=== PATIENT | female | born 1995 | race Caucasian/White ===

== ENCOUNTER → 2017-09-21 | Outpatient (CLI) | payer OTHER | LOC: CFH 12:20 | PROVIDERS: ATTEND Emergency Medicine | DX: N83.201 Unspecified ovarian cyst, right side (principal); N85.8 Other specified noninflammatory disorders of uterus | CPT/HCPCS: 76856 ==

== ENCOUNTER 2018-08-04 07:39 | Emergency (ER) | payer SELFPAY ==
[~2018-08-04] VITALS: Ht 162.6 cm; Wt 73.0 kg
--- NOTE | 2018-08-04 07:57 | NUR ---
upon arrival to 19, pt ambulated to bathroom to give sample. midlevel at bedside performing exam upon return to room
[2018-08-04] MEDS ORDERED: ONDANSETRON 4 MG TABLET PO ONE (08:00)
[2018-08-04] MEDS ORDERED: DIPHENHYDRAMINE 25 MG CAPSULE PO ONE ×2 (08:00→09:30)
[2018-08-04] MEDS ORDERED: KETOROLAC 30 MG/1 ML IM ONE (08:00)
[2018-08-04] MEDS ORDERED: ONDANSETRON ODT 4 MG ONE (08:11)
[2018-08-04] MEDS ORDERED: DIPHENHYDRAMINE 25 MG CAPSULE ONE (08:12)
[2018-08-04] MEDS ORDERED: KETOROLAC 30 MG/1 ML ONE (08:12)
--- NOTE | 2018-08-04 08:23 | NUR ---
Pt in US.
[2018-08-04 08:24] LABS: MICROSCOPIC AUTO
[2018-08-04 08:29] LABS: CULTURE INDICATED? YES
--- NOTE | 2018-08-04 08:41 | NUR ---
RETURNED FROM [facility]. BLOOD DRAWN AND MEDICATED PER ORDERS
[2018-08-04 08:47] LABS: BASOPHILS # (AUTO) 0.02 x10^3/uL (0-0.1); BASOPHILS % (AUTO) 0 % (0-1); EOSINOPHILS # (AUTO) 0.03 x10^3/uL (0-0.4); EOSINOPHILS % (AUTO) 0 % (1-7); LYMPHOCYTES % (AUTO) 10 % (22-44); MD NO; MEAN CORPUSCULAR HEMOGLOBIN 30.6 pg (27.0-34.8); MEAN CORPUSCULAR HGB CONC 33.9 g/dL (32.4-35.8); MEAN CORPUSCULAR VOLUME 90.3 fL (80-100); MEAN PLATELET VOLUME 7.3 fL (7.4-10.4); MONOCYTES # (AUTO) 0.94 x10^3/uL (0.2-0.8); MONOCYTES % (AUTO) 7 % (2-9); NEUTROPHILS # (AUTO) 11.08 x10^3/uL (1.8-6.8); NEUTROPHILS % (AUTO) 83 % (42-75); PLATELET COUNT 343 x10^3/uL (130-400); RED BLOOD COUNT 4.89 x10^6/uL (3.82-5.3); RED CELL DISTRIBUTION WIDTH 12.9 % (9.6-15.2)
[2018-08-04 08:52] LABS: ALANINE AMINOTRANSFERASE 207 U/L (12-78); ALBUMIN 3.6 g/dL (3.4-5.0); ANION GAP 5 mmol/L (5-15); CALCIUM 8.6 mg/dL (8.5-10.1); CHLORIDE 108 mmol/L (98-107); CREATININE 0.82 mg/dL (0.55-1.02)
[2018-08-04 08:57] LABS: ALKALINE PHOSPHATASE 125 U/L (45-117); BILIRUBIN,TOTAL 0.9 mg/dL (0.2-1.0); TOTAL PROTEIN 7.7 g/dL (6.4-8.2)
[2018-08-04] MEDS ORDERED: SODIUM CHLORIDE FLUSH 10ML SYR IVF ONE (09:00)
--- NOTE | 2018-08-04 09:27 | NUR ---
NEEDS IV FOR CT SCAN
[2018-08-04] MEDS ORDERED: ONDANSETRON ODT 4 MG PO ONE (09:30)
[2018-08-04] MEDS ORDERED: CEFTRIAXONE PMX 1GM/50ML 50 ML IV ONE (09:30)
--- NOTE | 2018-08-04 09:46 | NUR ---
PT STATES OVERALL PAIN HAS IMPROVED SINCE MEDICATED. AFTER IV STARTED PT TO CT
[2018-08-04] MEDS ORDERED: OMNIPAQUE 350 MG/ML, 100ML BOTTLE ONE (09:50)
--- NOTE | 2018-08-04 09:59 | NUR ---
CT COMPLETED AND ANTIBIOTICS INFUSING
--- NOTE | 2018-08-04 10:17 | NUR ---
Pt resting in bed talking with friend at bedside,
[2018-08-04 11:19] VITALS: BP 124/82
== END 2018-08-04 11:22 | disposition home or self-care (01) ==
LOC: ED 08:47
DX: N10 Acute pyelonephritis (principal); G43.909 Migraine, unspecified, not intractable, without status migrainosus
CPT/HCPCS: 36415; 74177; 76830; 80053; 81001; 83605; 84145; 84703; 85025; 87040; 87077; 87086; 96365; 96372; 99284; J0696; J1885; Q0162; Q0163; Q9967; 87186

== ENCOUNTER 2020-01-06 13:38 | Emergency (ER) | payer SELFPAY ==
[~2020-01-06] VITALS: Ht 162.6 cm; Wt 60.0 kg
[2020-01-06 13:51] VITALS: BP 132/70
--- NOTE | 2020-01-06 13:53 | NUR ---
THIS IS A 24 YEAR OLD FEMALE WHO WAS BIB BY AMBULANCE ON A LEGAL HOLD FROM [facility] FOR MEDICAL CLEARANCE. PT UNCOOPERATIVE AND WILL NOT ANSWER SIMPLE QUESTIONS. ROOM SECURED, BELONGING IN LOCKER, SITTER AT DOOR
--- NOTE | 2020-01-06 14:23 | NUR ---
THIS RN IN WITH LAB TO ASSIST WITH BLOOD DRAW. EDUCATED PATIENT REGARDING THE NEED FOR BLOOD. PT WAS COOPERATIVE. THEN RIGHT BEFORE BLOOD DRAW, PT MOVED HER ARM AWAY NOT LETTING US GET ACCESS FOR BLOOD. ASKED PT AGAIN FOR ARM AND TO GET BLOOD. PT REFUSES. TOURNIQUET REMOVED
[2020-01-06] MEDS ORDERED: HALOPERIDOL 5 MG/ML IM ONE (15:00)
--- NOTE | 2020-01-06 15:00 | NUR ---
Call from [place] at [facility] who states that they have an accepting doctor after patient is medically cleared.
--- NOTE | 2020-01-06 15:00 | NUR ---
WALKED PT TO BATHROOM. PT REFUSING TO SIT DOWN AND URINATE. PT STATES "SHUT THE DOOR. ALL THE WAY. I JUST WANT PRIVACY." PT EDUCATED REGARDING HOSPITAL POLICY. PT IS ON LEGAL HOLD. PT CONTINUING TO PROPERTY TECHNICIAN THE CORNER OF BATHROOM. SECURITY CALLED FOR ASSISTANCE. DR. AGUILAR SPEAKING WITH PT WELL. PT BACK TO BATHROOM. DOOR IS CRACKED. PT REFUSING TO URINATE. GETS UP OFF TOILET. PER EDMD, PT BACK TO ROOM. PT AGGRESSIVE WITH STAFF. PT TO ROOM. ALL SAFETY MEASURES OBTAINED.
--- NOTE | 2020-01-06 15:27 | NUR ---
PT REFUSES BED MORRISON AT THIS TIME.
--- NOTE | 2020-01-06 15:30 | NUR ---
PT REFUSING LABS
--- NOTE | 2020-01-06 15:41 | NUR ---
PT REQUESTING TO GO TO THE BATHROOM. PT OFFERED BED MORRISON AGAIN. PT STATES "I CAN USE THE BATHROOM WITH THE DOOR CLOSED." PT REEDUCATED REGARDING TRYING THAT EARLIER. PT ASKED AGAIN IF SHE WANTS TO USE BED MORRISON TO URINATE. PT SAYS "ARE WE GOING TO DO THIS MY WAY?" PT REEDUCATED REGARDING LEGAL HOLD STATUS. PT ASKED A THIRD TIME REGARDING BEDPAN. PT REFUSES.
--- NOTE | 2020-01-06 16:18 | NUR ---
PT REQUESTING TO USE BATHROOM, BEING UNCOOPERATIVE, OFFERED BSC, REFUSED, PT THEN WRAPPED SELF IN PRIVACY CURTAIN, REMOVED CURTAIN FOR SAFETY.
[2020-01-06] MEDS ORDERED: HALOPERIDOL 5 MG/ML ONE (16:42)
--- NOTE | 2020-01-06 16:46 | NUR ---
PT REFUSING TO COOPERATE AND KEEP DOOR CLOSED. PT HAS BEEN REDIRECTED MULTIPLE TIMES. PT REFUSING TO SIT ON GURNEY OR MOVE IN ORDER FOR THE DOOR TO BE SHUT. PT REEDUCATED AGAIN REGARDING LEGAL HOLD. PT REFUSING TO COOPERATE.
--- NOTE | 2020-01-06 16:48 | NUR ---
PT PLACED IN RESTRAINTS. PT MEDICATED PER ORDER. NADN. ALL SAFETY MEASURES OBTAINED.
--- NOTE | 2020-01-06 17:22 | NUR ---
ED DIET TRAY DELIVERED. PT STILL REFUSING BED MORRISON AND WATER. CMS INTACT. ALL SAFETY MEASURES OBTAINED.
--- NOTE | 2020-01-06 17:57 | NUR ---
PT OUT OF RESTRAINT, USED BSC WITH OBSERVATION, BEING COOPERATIVE, MEAL PROVIDED.
--- NOTE | 2020-01-06 18:20 | NUR ---
PT ATE 50% MEAL, SITTER DOOR, ROOM REMAINS SECURED. WARM BLANKETS GIVEN
[2020-01-06 18:28] LABS: MICROSCOPIC INDICATED
--- NOTE | 2020-01-06 18:37 | NUR ---
PT ROAMING HALLS. PT REDIRECTED TO GO BACK TO ROOM. PT RESISTANT TO WALK INTO ROOM. PT RESISTANT TO SITTING ON GURNEY. PT REEDUCATED REGARDING THE PROCESS AND BEING ON LEGAL 1999. PT GOT BACK OFF GURNEY. PT REDIRECTED TO SIT DOWN. PT ALSO EDUCATED ABOUT POSSIBLY BEING BACK IN RESTRAINTS IF SHE CONTINUES TO ROAM THE HALLS. PT WAS GIVEN THE CHOICE TO SIT ON GURNEY OR WE CAN HAVE SECURITY COME. PT SAT ON GURNEY. JOCELIN
[2020-01-06 18:40] LABS: AMPHETAMINE SCREEN, URINE Negative (Negative); BARBITURATE SCREEN, URINE Negative (Negative); BENZODIAZEPINE SCREEN, URINE Negative (Negative); CANNABINOID SCREEN, URINE Positive (Negative); COCAINE SCREEN, URINE Negative (Negative); METHADONE SCREEN, URINE Negative (Negative); OPIATE SCREEN, URINE Negative (Negative)
--- NOTE | 2020-01-06 18:50 | NUR ---
Received report from Josh Lora RN.
--- NOTE | 2020-01-06 18:55 | NUR ---
REPORT TO KRISTY STARKS, PLAN OF CARE DISCUSSED.
--- NOTE | 2020-01-06 19:12 | NUR ---
Pt wakens easily and compliant w/ blood draw. Pt returned to sleeping.
[2020-01-06 19:21] LABS: BASOPHILS # (AUTO) 0.04 x10^3/uL (0-0.1); BASOPHILS % (AUTO) 0 % (0-1); EOSINOPHILS # (AUTO) 0.07 x10^3/uL (0-0.4); EOSINOPHILS % (AUTO) 1 % (1-7); LYMPHOCYTES # (AUTO) 2.59 x10^3/uL (1-3.4); LYMPHOCYTES % (AUTO) 24 % (22-44); MD NO; MEAN CORPUSCULAR HEMOGLOBIN 31.1 pg (27.0-34.8); MEAN CORPUSCULAR HGB CONC 33.7 g/dL (32.4-35.8); MEAN CORPUSCULAR VOLUME 92.3 fL (80-100); MEAN PLATELET VOLUME 7.2 fL (7.4-10.4); MONOCYTES # (AUTO) 0.69 x10^3/uL (0.2-0.8); MONOCYTES % (AUTO) 6 % (2-9); NEUTROPHILS # (AUTO) 7.61 x10^3/uL (1.8-6.8); NEUTROPHILS % (AUTO) 69 % (42-75); PLATELET COUNT 460 x10^3/uL (130-400); RED BLOOD COUNT 4.68 x10^6/uL (3.82-5.3); RED CELL DISTRIBUTION WIDTH 12.4 % (9.6-15.2)
[2020-01-06 19:31] LABS: ALANINE AMINOTRANSFERASE 20 U/L (12-78); ALBUMIN 3.7 g/dL (3.4-5.0); ANION GAP 4 mmol/L (5-15); CALCIUM 8.7 mg/dL (8.5-10.1); CHLORIDE 106 mmol/L (98-107); SALICYLATE LEVEL < 1.7 mg/dL (2.8-20.0)
[2020-01-06 19:33] LABS: ALKALINE PHOSPHATASE 95 U/L (45-117); BILIRUBIN,TOTAL 1.5 mg/dL (0.2-1.0); CREATININE 0.78 mg/dL (0.55-1.02); TOTAL PROTEIN 6.9 g/dL (6.4-8.2)
--- NOTE | 2020-01-06 22:21 | NUR ---
PAPERWORK/PACKET FAXED TO [facility].
--- NOTE | 2020-01-06 22:45 | NUR ---
Spoke to Dionna STARKS at [facility] regarding Irma returning.
--- NOTE | 2020-01-06 23:01 | NUR ---
PT PACKET SENT TO [facility] AT THIS TIME FOR TRANSPORT OF PT BACK TO [facility]
== END 2020-01-07 00:01 ==
LOC: ED 21:04
DX: F44.9 Dissociative and conversion disorder, unspecified (principal); G43.909 Migraine, unspecified, not intractable, without status migrainosus
CPT/HCPCS: 36415; 80053; 80307; 81001; 81025; 85025; 96374; 99285; J1630